=== PATIENT | male | born 1995 | race Caucasian/White ===

== ENCOUNTER 2018-03-11 15:27 | Emergency (ER) | payer SELFPAY ==
[~2018-03-11] VITALS: Ht 177.8 cm; Wt 86.0 kg
[2018-03-11 15:34] VITALS: BP 135/79; PULSE 85; RESP 16; TEMP 98.3; O2SAT 96
--- NOTE | 2018-03-11 16:12 | PD ---
HPI Chief Complaint: Skin Problem Time Seen by Provider: 15:44 Travel History International Travel<30 days: No Contact w/Intl Traveler<30days: No Traveled to known affect area: No History of Present Illness HPI 23-year-old male presents emergency department for treatment after his girlfriend recommended he come to the ED for evaluation. Patient says that his girlfriend was treated for a parasite and was told to have him treated as well. Patient denies any symptoms to include rash, penile discharge, dysuria. Girlfriend was unable to explain the infection initially but did notify that patient was treated for trichomoniasis. [facility] Past Medical History Medical History: Denies Significant Hx Diminished Hearing: No Immunizations Current: Yes Tetanus Vaccination: < 5 Years Influenza Vaccination: No ?: Not Past Surgical History Surgical History: No Previous Surgery Social History Alcohol Use: No Tobacco Use: Yes (11/27 ppd) Substance Use: No Allergies-Medications (Allergen,Severity, Reaction): Coded Allergies: penicillin G (Unverified Allergy, Severe, Anaphylaxis, 03/11/18) Reported Meds & Prescriptions Reported Meds & Active Scripts Active Metronidazole 500 Mg Tab 500 Mg PO BID 7 Days Review of Systems Except as stated in HPI: all other systems reviewed are Neg Physical Exam Narrative GENERAL: Well-nourished, well-developed patient. SKIN: Focused skin assessment warm/dry. HEAD: Normocephalic. EYES: No scleral icterus. No injection or drainage. NECK: Supple, trachea midline. No JVD or lymphadenopathy. CARDIOVASCULAR: Regular rate and rhythm without murmurs, gallops, or rubs. RESPIRATORY: Breath sounds equal bilaterally. No accessory muscle use. GASTROINTESTINAL: Abdomen soft, non-tender, nondistended. MUSCULOSKELETAL: No cyanosis, or edema. BACK: Nontender without obvious deformity. No CVA tenderness. Data Data Last Documented VS Vital Signs Date Time Temp Pulse Resp B/P (MAP) Pulse Ox O2 Delivery O2 Flow Rate FiO2 03/11/18 15:34 98.3 85 16 135/79 (97) 96 MDM Medical Decision Making Medical Screen Exam Complete: Yes Emergency Medical Condition: Yes Differential Diagnosis STI prevention, STI treatment, prophylaxis Narrative Course 23-year-old male presents emergency department for evaluation and treatment after his girlfriend was treated for trichomoniasis. Vital signs are stable. Physical exam findings essentially unremarkable. Patient denies any symptoms at all. Patient will be given metronidazole for outpatient use. Advised to avoid alcohol consumption while on this medication. He should follow-up with his primary care physician. Diagnosis Primary Impression: Prophylactic antibiotic Referrals: Primary Care Physician Additional Instructions: Avoid sexual contact until you are completely done with the antibiotic. Do not drink alcohol with this medication. Scripts Metronidazole (Metronidazole) 500 Mg Tab 500 MG PO BID for Infection for 7 Days, #14 TAB 0 Refills Prov: JsMaria Estherfrancisco Weldon DO 03/11/18 Disposition: 01 DISCHARGE HOME Condition: Stable Sabi Pierre Mar 11, 2018 16:12
[2018-03-11] MEDS ORDERED: METR1TAB76 PO (16:15)
== END 2018-03-11 16:28 | disposition home or self-care (01) ==
LOC: PHEFT 15:27
DX: Z29.8 Encounter for other specified prophylactic measures (principal); Z20.2 Contact with and (suspected) exposure to infections with a predominantly sexual mode of transmission; F17.200 Nicotine dependence, unspecified, uncomplicated
CPT/HCPCS: 99283

== ENCOUNTER 2018-03-29 16:25 | Emergency (ER) | payer SELFPAY ==
[~2018-03-29] VITALS: Ht 177.8 cm; Wt 84.9 kg
[~2018-03-29 16:25] MED LIST: METR1TAB76 PO
[2018-03-29 16:31] VITALS: BP 119/66; PULSE 103; RESP 16; TEMP 99.1; O2SAT 97
[2018-03-29 16:59] LABS: BLOOD, URINE NEG (NEG); GLUCOSE,URINE NEG (NEG); KETONE, URINE TRACE mg/dL (NEG); NITRITE,URINE POS (NEG); URINE COLOR YELLOW (YELLW/STRAW); URINE LEUKOCYTE ESTERASE NEG (NEG)
[2018-03-29 17:07] LABS: BILIRUBIN, URINE NEG (NEG)
[2018-03-29 17:11] LABS: MUCUS URINE FEW /lpf (OCC); SQUAMOUS EPITHELIAL CELL URINE 0-5 /hpf (0-5)
--- NOTE | 2018-03-29 17:30 | PD ---
HPI Chief Complaint: Complaint Time Seen by Provider: 16:46 Travel History International Travel<30 days: No Contact w/Intl Traveler<30days: No Traveled to known affect area: No History of Present Illness HPI This is a 23-year-old male here with dysuria, frequency, suprapubic discomfort 3 days. No fever chills. No nausea or vomiting. No flank pain. No penile discharge. No testicular pain or swelling. Patient reports he was recently treated for trichomonas several weeks prior with Flagyl. He reports compliance with that medication has not had any sexual intercourse after taking Flagyl. Symptom severity is mild to moderate. No aggravating or alleviating factors. PFSH Past Medical History Medical History: Denies Significant Hx Diminished Hearing: No Immunizations Current: Yes Tetanus Vaccination: < 5 Years Influenza Vaccination: No ?: Not Social History Alcohol Use: No Tobacco Use: Yes (11/27 ppd) Substance Use: No Allergies-Medications (Allergen,Severity, Reaction): Coded Allergies: penicillin G (Unverified Allergy, Severe, Anaphylaxis, 03/29/18) Reported Meds & Prescriptions Reported Meds & Active Scripts Active Bactrim DS (Sulfamethoxazole-Trimethoprim) 800-160 Mg Tab 1 Tab PO BID Metronidazole 500 Mg Tab 500 Mg PO BID 7 Days Review of Systems Except as stated in HPI: all other systems reviewed are Neg General / Constitutional: No: Fever Eyes: No: Visual changes HENT: No: Headaches Cardiovascular: No: Chest Pain or Discomfort Respiratory: No: Shortness of Breath Gastrointestinal: Positive: Abdominal Pain Genitourinary: Positive: Urgency, Dysuria Musculoskeletal: No: Pain Physical Exam Narrative GENERAL: Alert and well-appearing 23-year-old male. Resting comfortably on the stretcher. No distress. SKIN: Warm and dry. HEAD: Normocephalic. EYES: No injection or drainage. NECK: Supple CARDIOVASCULAR: Regular rate and rhythm RESPIRATORY: Breath sounds equal bilaterally. No accessory muscle use. GASTROINTESTINAL: Abdomen soft, non-tender, nondistended. No rebound or guarding MUSCULOSKELETAL: No cyanosis, or edema. BACK: No CVA tenderness. Data Data Last Documented VS Vital Signs Date Time Temp Pulse Resp B/P (MAP) Pulse Ox O2 Delivery O2 Flow Rate FiO2 03/29/18 16:31 99.1 103 16 119/66 (83) 97 Orders Orders Urinalysis - C+S If Indicated (03/29/18 16:37) Gc And Chlamydia Pcr (03/29/18 16:42) Urine Culture (03/29/18 16:40) Labs Laboratory Tests Test 03/29/18 16:40 Urine Collection Type CLEAN CATCH Urine Color YELLOW Urine Turbidity CLEAR Urine pH 6.0 Urine Specific [place] GREATER/EQUAL 1.030 Urine Protein 30 mg/dL Urine Glucose (UA) NEG mg/dL Urine Ketones TRACE mg/dL Urine Occult Blood NEG Urine Nitrite POS Urine Bilirubin NEG Urine Urobilinogen 1.0 MG/DL Urine Leukocyte Esterase NEG Urine WBC 20-24 /hpf Urine Squamous Epithelial Cells 0-5 /hpf Urine Mucus FEW /lpf Microscopic Urinalysis Comment CULTURE INDICATED Urine Collection Time 1640 MDM Medical Decision Making Medical Screen Exam Complete: Yes Emergency Medical Condition: Yes Differential Diagnosis UTI, urethritis, other Narrative Course 23-year-old male here for evaluation of dysuria 3 days. He is well-appearing. His abdomen is soft and nontender. UA suggestive of infection. He will be treated for UTI. Diagnosis Primary Impression: UTI (urinary tract infection) Qualified Codes: N30.00 - Acute cystitis without hematuria Referrals: [facility] Additional Instructions: Antibiotics as directed. Follow-up with her primary doctor. Return if he develop new or worsening symptoms. Scripts Sulfamethoxazole-Trimethoprim (Bactrim DS) 800-160 Mg Tab 1 TAB PO BID for Infection, #10 TAB 0 Refills Prov: Poppy Hobson 03/29/18 Disposition: 01 DISCHARGE HOME Condition: Stable Poppy Hobson March 29, 2018 17:30
[2018-03-29] MEDS ORDERED: BACT800T5 PO (17:51)
[2018-03-30] MEDS ORDERED: IBUP1TAB7 PO (20:47)
== END 2018-03-29 18:00 | disposition home or self-care (01) ==
LOC: PHEFT 16:25
DX: N39.0 Urinary tract infection, site not specified (principal); F17.200 Nicotine dependence, unspecified, uncomplicated; Z88.0 Allergy status to penicillin
CPT/HCPCS: 81001; 87086; 99283

== ENCOUNTER 2018-03-30 20:19 | Emergency (ER) | payer SELFPAY ==
[~2018-03-30] VITALS: Ht 177.8 cm; Wt 85.5 kg
[~2018-03-30 20:19] MED LIST changes: +BACT800T5 PO
[2018-03-30 20:30] VITALS: BP 137/87; PULSE 118; RESP 18; TEMP 98.6; O2SAT 98
[2018-03-30] MEDS ORDERED: IBUPROFEN 800 MG TAB PO ONE (20:45)
--- NOTE | 2018-03-30 20:46 | PD ---
HPI Chief Complaint: Skin Problem Time Seen by Provider: 20:39 Travel History International Travel<30 days: No Contact w/Intl Traveler<30days: No Traveled to known affect area: No History of Present Illness HPI 23-year-old male presents to the emergency department for evaluation of sunburn for 2 days. Patient has not taken anything [id number] for the pain. Current pain is 10/10, burning to the trunk. No radiate patient of pain. He has no other symptoms or complaints at this time. Mild severity. PFSH Past Medical History Medical History: Denies Significant Hx Diminished Hearing: No Immunizations Current: Yes Tetanus Vaccination: Unknown Past Surgical History Surgical History: No Previous Surgery Social History Alcohol Use: No Tobacco Use: Yes (/ ppd) Substance Use: No Allergies-Medications (Allergen,Severity, Reaction): Coded Allergies: penicillin G (Unverified Allergy, Severe, Anaphylaxis, 03/30/18) Reported Meds & Prescriptions Reported Meds & Active Scripts Active Bactrim DS (Sulfamethoxazole-Trimethoprim) 800-160 Mg Tab 1 Tab PO BID Metronidazole 500 Mg Tab 500 Mg PO BID 7 Days Review of Systems Except as stated in HPI: all other systems reviewed are Neg Physical Exam Narrative GENERAL: Well-nourished, well-developed male patient, afebrile. Ambulatory. SKIN: Focused skin assessment warm/dry. Patient has superficial sunburn to the trunk. No blisters or evidence of partial thickness peterson. HEAD: Normocephalic. Atraumatic. EYES: No scleral icterus. No injection or drainage. NECK: Supple, trachea midline. No JVD or lymphadenopathy. CARDIOVASCULAR: Regular rate and rhythm without murmurs, gallops, or rubs. RESPIRATORY: Breath sounds equal bilaterally. No accessory muscle use. Lung sounds are clear to auscultation. MUSCULOSKELETAL: No cyanosis, or edema. Data Data Last Documented VS Vital Signs Date Time Temp Pulse Resp B/P (MAP) Pulse Ox O2 Delivery O2 Flow Rate FiO2 03/30/18 20:30 98.6 118 18 137/87 (104) 98 Orders Orders Ibuprofen (Motrin) (03/30/18 20:45) MDM Medical Decision Making Medical Screen Exam Complete: Yes Emergency Medical Condition: Yes Medical Record Reviewed: Yes Differential Diagnosis First-degree burn versus partial thickness burn versus acute pain Narrative Course 23-year-old male presents to the emergency department for evaluation of sunburn. He has not taken anything [id number] for his pain. On exam, patient has superficial burn to the trunk. The charge nurse informed me the patient was here yesterday and Chlamydia/gonorrhea was unable to be run on urine because it was spilled. I discussed with the patient offered to re- collect and he agreed to have urine recollected. Patient is given ibuprofen 800 mg p.o. He will be discharged with a prescription for ibuprofen. He is instructed to use aloe vera [id number] for comfort. The patient was discharged in stable condition with instructions, including return instructions and follow up instructions. Diagnosis Primary Impression: Sunburn of first degree Referrals: Primary Care Physician call for appointment Patient Instructions: General Instructions, Sunburn (ED) Additional Instructions: Take ibuprofen as directed as needed with food for pain. [id number] aloe vera for comfort. Follow-up with a primary care physician. Return to the emergency department for any acute worsening of symptoms. Med/Other Pt SpecificInfo: Prescription(s) given Scripts Ibuprofen (Ibuprofen) 800 Mg Tab 800 MG PO TID Y for PAIN SCALE 1 TO 10, #21 TAB 0 Refills Prov: Sandrita Harrison 03/30/18 Disposition: 01 DISCHARGE HOME Condition: Stable Sandrita Harrison March 30, 2018 20:46
[2018-03-30] MEDS ORDERED: IBUP1TAB7 PO (20:47)
[2018-03-30] MEDS ORDERED: SODIUM CHLORIDE 0.9% FLUSH 10 ML FLUSH IVF PRN (21:00)
== END 2018-03-30 20:59 | disposition home or self-care (01) ==
LOC: PHEFT 20:19
DX: L55.0 Sunburn of first degree (principal); F17.200 Nicotine dependence, unspecified, uncomplicated
CPT/HCPCS: 87491; 87591; 99283